=== PATIENT | male | born 1960 | race Caucasian/White ===

== ENCOUNTER 2017-06-18 10:21 | Day surgery (SDC) | payer OTHER ==
[2017-06-18] MEDS ORDERED: FENTAnyl 50 MCG/ML VIAL (12:14)
[2017-06-18] MEDS ORDERED: MIDAZOLAM 1 MG/ML 2 ML INJ ×2 (12:14→12:15)
== END 2017-06-18 13:31 | disposition home or self-care (01) ==
LOC: GIL 10:21
DX: Z12.11 Encounter for screening for malignant neoplasm of colon (principal); D12.5 Benign neoplasm of sigmoid colon; D12.3 Benign neoplasm of transverse colon; K64.8 Other hemorrhoids
CPT/HCPCS: 45380; 88305